=== PATIENT | male | born 1950 | race Caucasian/White ===

== ENCOUNTER 2024-01-28 14:13 | Emergency (ER) | payer MEDICARE, OTHER ==
[2024-01-28 14:47] LABS: BASOPHILS ABSOLUTE AUTO 0.03 K/uL (0.00-0.20); BASOPHILS PERCENT AUTO 0.4 % (0.0-2.0); EOSINOPHILS PERCENT AUTO 1.3 % (0.0-5.0); HEMATOCRIT 44.7 % (39.0-49.0); HEMOGLOBIN 15.4 g/dL (13.1-16.8); LYMPHOCYTES PERCENT AUTO 14.2 % (10.0-50.0); MEAN CORPUSCULAR HEMOGLOBIN 28.4 pg (28.2-33.3); MEAN CORPUSCULAR HGB CONC 34.5 g/dL (31.7-36.0); MEAN CORPUSCULAR VOLUME 82.5 fL (84.0-98.0); MONOCYTES ABSOLUTE AUTO 0.74 K/uL (0.00-1.00); MONOCYTES PERCENT AUTO 9.6 % (2.0-14.0); NEUTROPHILS ABSOLUTE AUTO 5.76 K/uL (1.40-7.00); NEUTROPHILS PERCENT AUTO 74.5 % (45.0-80.0); PLATELET COUNT,PLT 201 K/uL (150-350); RED BLOOD CELL COUNT 5.42 M/uL (4.33-5.41); RED CELL DISTRIBUTION WIDTH 14.4 % (11.2-14.1); WHITE BLOOD CELL COUNT,WBC 7.7 K/uL (4.0-10.2)
[2024-01-28 15:07] LABS: ALBUMIN 3.4 g/dL (3.4-5.0); BILIRUBIN TOTAL 1.8 mg/dL (0.2-1.0); CALCIUM 8.5 mg/dL (8.5-10.1); CARBON DIOXIDE,CO2 34.6 mmol/L (21.0-32.0); CREATININE 1.22 mg/dL (0.51-1.17); EST CRCL DRUG DOSING (CG) 55.72 mL/min; PROTEIN TOTAL,TP 6.6 g/dL (6.4-8.2)
[2024-01-28 15:19] LABS: ANION GAP 9.2 meq/L (7-15); POTASSIUM,K 2.8 mmol/L (3.5-5.1)
[2024-01-28 15:24] LABS: INR 1.1 (0.9-1.1); PROTHROMBIN TIME 10.5 SEC (9.0-11.1)
[2024-01-28] MEDS: Potassium Bicarbonate/Cit Ac 20 MEQ Effervescent Tab PO ONE ×3 (15:49→16:49)
== END 2024-01-28 18:30 | disposition home or self-care (01) ==
LOC: LL.ED 14:13
DX: S41.111A Laceration without foreign body of right upper arm, initial encounter (principal); S41.112A Laceration without foreign body of left upper arm, initial encounter; E87.6 Hypokalemia; M25.551 Pain in right hip; M25.571 Pain in right ankle and joints of right foot; W19.XXXA Unspecified fall, initial encounter
CPT/HCPCS: 36415; 73610-RT; 80053; 84132; 85025; 85610; 93005; 93010; 99284; A9270-GY